=== PATIENT | female | born 1960 | race African-American/Black ===

== ENCOUNTER 2020-06-15 12:15 | Emergency (ER) | payer MEDICAID, OTHER ==
[~2020-06-15] VITALS: Ht 165.1 cm; Wt 73.9 kg
[2020-06-15] MEDS ORDERED: ACETAMINOPHEN ES 500 MG TABLET PO ONE (12:45)
[2020-06-15] MEDS ORDERED: ACETAMINOPHEN ES 500 MG TABLET ONE (12:48)
--- NOTE | 2020-06-15 14:41 | NUR ---
PT WAS EVALUATED BY DR MANZO. PT WAS D/C'd TO HOME. D/C INSTRUCTIONS GIVEN TO THE PT BY DR MANZO.
[2020-06-15 14:42] VITALS: BP 142/75
== END 2020-06-15 14:50 | disposition home or self-care (01) ==
LOC: ER 12:15
DX: M25.562 Pain in left knee (principal); M25.561 Pain in right knee; Z91.81 History of falling
CPT/HCPCS: 73562; A4663; A9150

== ENCOUNTER 2021-01-18 14:20 | Emergency (ER) | payer OTHER ==
[~2021-01-18] VITALS: Ht 165.1 cm; Wt 73.5 kg
--- NOTE | 2021-01-18 14:38 | NUR ---
Dr Mata at bedside for MSE.
--- NOTE | 2021-01-18 14:58 | NUR ---
Pt down to CT, left in stable condition. Will draw labs, collect urine and do covid swab when back.
--- NOTE | 2021-01-18 15:15 | NUR ---
Pt back from CT.
[2021-01-18 15:41] LABS: BASOPHILS % (AUTO) 0.3 % (0.0-2.0); EOSINOPHILS # (AUTO) 0.2 K/uL (0.0-0.7); EOSINOPHILS % (AUTO) 2.8 % (0.0-7.0); HEMATOCRIT 37.2 % (31.2-41.9); HEMOGLOBIN 12.5 g/dL (10.9-14.3); LYMPHOCYTES # (AUTO) 2.7 K/uL (20.0-40.0); MEAN CORPUSCULAR HEMOGLOBIN 29.7 uug (24.7-32.8); MEAN CORPUSCULAR HGB CONC 34 g/dL (32.3-35.6); MEAN CORPUSCULAR VOLUME 88.4 fL (75.5-95.3); MONOCYTES # (AUTO) 0.6 K/uL (2.0-10.0); MONOCYTES % (AUTO) 8.9 % (0.0-11.0); NEUTROPHILS # (AUTO) 3.2 K/uL (1.8-8.9); PLATELET COUNT (AUTO) 252 K/uL (179-408); WHITE BLOOD COUNT (AUTO) 6.7 K/uL (3.8-11.8)
[2021-01-18 15:48] LABS: *BILIRUBIN,URIN NEGATIVE (NEGATIVE); *BLOOD, URINE NEGATIVE (NEGATIVE); *CLARITY,URINE CLEAR (CLEAR); *COLOR,URINE YELLOW (YELLOW); *KETONES,URINE NEGATIVE (NEGATIVE); *UROBILINOGEN,URINE 0.2 E.U./dl (NORMAL); CREATININE 0.8 mg/dL (0.6-1.3); LEUKOCYTE ESTERASE ,URINE NEGATIVE (NEGATIVE); NITRITE, URINE NEGATIVE (NEGATIVE); POTASSIUM 3.6 mmol/L (3.5-5.1); UGLUCOSE NEGATIVE (NEGATIVE)
[2021-01-18 15:54] LABS: BILIRUBIN,DIRECT 0.1 mg/dL (0.0-0.2); BILIRUBIN,TOTAL 0.6 mg/dL (0.2-1.0); TOTAL PROTEIN, SERUM 8.2 g/dL (6.4-8.2)
[2021-01-18] MEDS ORDERED: AZIT250T13 PO (16:49)
[2021-01-18] MEDS ORDERED: PRED50TA PO (16:49)
[2021-01-18] MEDS ORDERED: IBUP-1957 PO (16:49)
[2021-01-18] MEDS ORDERED: BENZ200C53 PO (16:49)
--- NOTE | 2021-01-18 17:10 | NUR ---
Patient has been cleared for DC by ERMD. Written and verbal after care instructions given, along with prescriptions. Patient verbalizes understanding of instructions. Stressed follow up with PCP/specialists or return to ER for worsening s/s. Patient ambulated out of ER in steady gait, and stable condition.
[2021-01-18 18:00] VITALS: BP 135/80
== END 2021-01-18 17:20 | disposition home or self-care (01) ==
LOC: ER 14:20
DX: J45.901 Unspecified asthma with (acute) exacerbation (principal); J20.9 Acute bronchitis, unspecified; Z20.822 Contact with and (suspected) exposure to COVID-19; I45.10 Unspecified right bundle-branch block; M17.11 Unilateral primary osteoarthritis, right knee; M25.461 Effusion, right knee; I70.0 Atherosclerosis of aorta; N28.89 Other specified disorders of kidney and ureter; I11.9 Hypertensive heart disease without heart failure; E78.5 Hyperlipidemia, unspecified
CPT/HCPCS: 36415; 70030-TC; 71045; 83690; 85025; 93005; A4663

== ENCOUNTER 2021-02-19 10:13 | Emergency (ER) | payer MEDICAID, OTHER ==
[~2021-02-19] VITALS: Ht 165.1 cm; Wt 74.8 kg
[~2021-02-19 10:13] MED LIST: AZIT250T13 PO; BENZ200C53 PO; IBUP-1957 PO; PRED50TA PO
[2021-02-19] MEDS ORDERED: ALBUTEROL SULFATE 2.5 MG/3 ML NEBU NEB ONE (10:30)
[2021-02-19] MEDS ORDERED: IPRATROPIUM BROMIDE 0.5 MG/2.5 ML NEBU NEB ONE (10:30)
[2021-02-19] MEDS ORDERED: methylPREDNISolone SOD SUCC 125 MG/2 ML VIAL IV ONE (10:30)
[2021-02-19] MEDS ORDERED: IPRATROPIUM BROMIDE 0.5 MG/2.5 ML NEBU ONE (10:48)
[2021-02-19] MEDS ORDERED: ALBUTEROL SULFATE 2.5 MG/ 0.5 ML NEBU ONE (10:48)
[2021-02-19 11:00] LABS: BASOPHILS % (AUTO) 0.2 % (0.0-2.0); EOSINOPHILS # (AUTO) 0.2 K/uL (0.0-0.7); EOSINOPHILS % (AUTO) 3.2 % (0.0-7.0); HEMATOCRIT 35.4 % (31.2-41.9); HEMOGLOBIN 11.7 g/dL (10.9-14.3); LYMPHOCYTES # (AUTO) 2.4 K/uL (20.0-40.0); LYMPHOCYTES % (AUTO) 40.3 % (20.5-51.5); MEAN CORPUSCULAR HEMOGLOBIN 29.7 uug (24.7-32.8); MEAN CORPUSCULAR HGB CONC 33 g/dL (32.3-35.6); MEAN CORPUSCULAR VOLUME 89.6 fL (75.5-95.3); MONOCYTES # (AUTO) 0.5 K/uL (2.0-10.0); MONOCYTES % (AUTO) 7.6 % (0.0-11.0); NEUTROPHILS # (AUTO) 2.9 K/uL (1.8-8.9); NEUTROPHILS % (AUTO) 48.7 % (38.5-71.5); PLATELET COUNT (AUTO) 246 K/uL (179-408); RED BLOOD CELL COUNT(AUTO) 3.95 MIL/uL (3.63-4.92); WHITE BLOOD COUNT (AUTO) 5.9 K/uL (3.8-11.8)
[2021-02-19] MEDS ORDERED: methylPREDNISolone SOD SUCC 125 MG/2 ML VIAL ONE (11:05)
[2021-02-19 11:17] LABS: BILIRUBIN,DIRECT 0.2 mg/dL (0.0-0.2); BILIRUBIN,TOTAL 0.7 mg/dL (0.2-1.0); POTASSIUM 3.7 mmol/L (3.5-5.1); TOTAL PROTEIN, SERUM 7.9 g/dL (6.4-8.2)
[2021-02-19] MEDS ORDERED: PRED50TA PO (11:32)
[2021-02-19] MEDS ORDERED: MECL-159 PO (11:32)
[2021-02-19] MEDS ORDERED: PROM118S5 PO (11:32)
[2021-02-19] MEDS ORDERED: BENZ-13 PO (11:32)
--- NOTE | 2021-02-19 12:21 | NUR ---
Patient discharged to home in stable condition. Written and verbal after care instructions given. Patient verbalizes understanding of instructions. Stressed follow up or return to ER for worsening s/s.Patient walks with steady gait. Denies dizziness, states they feel better and are not feeling short of breath. Patient states she will follow up with her primary.
[2021-02-19 12:31] VITALS: BP 133/85
== END 2021-02-19 12:10 | disposition home or self-care (01) ==
LOC: ER 10:13
DX: J45.901 Unspecified asthma with (acute) exacerbation (principal); R07.89 Other chest pain; R42 Dizziness and giddiness; I11.9 Hypertensive heart disease without heart failure; I45.10 Unspecified right bundle-branch block; G31.9 Degenerative disease of nervous system, unspecified; E78.5 Hyperlipidemia, unspecified; Z88.6 Allergy status to analgesic agent
CPT/HCPCS: 36415; 70450; 71045; 80048; 80076; 83880; 84484; 85025; 93005; 94640; 96374; 99285; J2930; 70030-TC; A4663; J3590

== ENCOUNTER 2021-07-02 15:12 | Emergency (ER) | payer MEDICAID, OTHER ==
[~2021-07-02] VITALS: Ht 165.1 cm; Wt 78.0 kg
[~2021-07-02 15:12] MED LIST changes: -AZIT250T13 PO; +BENZ-13 PO; +MECL-159 PO; +PROM118S5 PO
[2021-07-02] MEDS ORDERED: FLEXERIL PO (15:54)
[2021-07-02] MEDS ORDERED: ALBU8.5H8 INH (15:54)
[2021-07-02] MEDS ORDERED: AMLO-212 PO (15:54)
[2021-07-02] MEDS ORDERED: FLUT1DIS27 INH (15:54)
[2021-07-02] MEDS ORDERED: ASPIRIN 81 MG TAB.CHEW ONE (16:13)
[2021-07-02] MEDS ORDERED: ASPIRIN 81 MG TAB.CHEW PO ONE (16:15)
[2021-07-02 16:19] LABS: HEMATOCRIT 35.8 % (31.2-41.9); MEAN CORPUSCULAR HEMOGLOBIN 30.3 uug (24.7-32.8); MEAN CORPUSCULAR VOLUME 88.8 fL (75.5-95.3); PLATELET COUNT (AUTO) 243 K/uL (179-408)
[2021-07-02 16:26] LABS: POTASSIUM 3.3 mmol/L (3.5-5.1)
[2021-07-02 16:31] LABS: BILIRUBIN,TOTAL 0.7 mg/dL (0.2-1.0); TOTAL PROTEIN, SERUM 7.9 g/dL (6.4-8.2)
[2021-07-02] MEDS ORDERED: ACETAMINOPHEN 325 MG TABLET PO ONE (16:45)
[2021-07-02] MEDS ORDERED: ACETAMINOPHEN 325 MG TABLET ONE (16:59)
--- NOTE | 2021-07-02 20:00 | NUR ---
YESSY FROM [facility] CALLED WITH THE FOLLOWING DETAILS; PT IS GOING TO [facility] ROOM 918 REPORT NUMBER [phone], ADMITTING MD DR. PANDA WITT [phone]
--- NOTE | 2021-07-02 20:39 | NUR ---
CALLED [facility], SPOKE TO LOPEZ WHO GAVE ETA OF 30MINS.
--- NOTE | 2021-07-02 21:35 | NUR ---
[facility] AT BEDSIDE TO TRANSFER THE PT. CALLED FOR REPORT, NO RESPONSE, WILL CALL AGAIN. TRANSFERED PT IN STABLE CONDITION.
== END 2021-07-02 21:35 | disposition short-term general hospital (02) ==
LOC: ER 15:12
DX: R07.9 Chest pain, unspecified (principal); I45.10 Unspecified right bundle-branch block; Z20.822 Contact with and (suspected) exposure to COVID-19; I10 Essential (primary) hypertension; E78.5 Hyperlipidemia, unspecified; J45.909 Unspecified asthma, uncomplicated; M25.562 Pain in left knee; M25.561 Pain in right knee; M19.90 Unspecified osteoarthritis, unspecified site
CPT/HCPCS: 36415; 70030-TC; 71045; 73560; 85025; A4663

== ENCOUNTER 2022-03-21 09:02 | Emergency (ER) | payer MEDICAID, OTHER ==
[~2022-03-21] VITALS: Ht 165.1 cm; Wt 73.5 kg
[~2022-03-21 09:02] MED LIST changes: +ALBU8.5H8 INH; +AMLO-212 PO; -BENZ-13 PO; -BENZ200C53 PO; +FLEXERIL PO; +FLUT1DIS27 INH; -IBUP-1957 PO; -MECL-159 PO; -PRED50TA PO; -PROM118S5 PO
[2022-03-21] MEDS ORDERED: KETOROLAC TROMETHAMINE 15 MG INJ IM ONE ×2 (11:00→13:00)
[2022-03-21] MEDS ORDERED: KETOROLAC TROMETHAMINE 15 MG INJ ONE ×2 (11:01→13:06)
--- NOTE | 2022-03-21 11:40 | NUR ---
Pt still has a lot of pain, -06/19
[2022-03-21] MEDS ORDERED: NAPR-1009 PO (12:59)
[2022-03-21] MEDS ORDERED: TRAM50TA PO (12:59)
--- NOTE | 2022-03-21 13:23 | NUR ---
Showed pt how to wrap knee w/elastic bandage, she didn't want it wrapped now; gave her a bandage for home. Pt has 9/10 L knee pain, now. Gave pt RX and d/c instructions, pt verbalized understanding.
== END 2022-03-21 13:30 | disposition home or self-care (01) ==
LOC: ER 09:02
DX: M25.562 Pain in left knee (principal); M17.12 Unilateral primary osteoarthritis, left knee; Z87.828 Personal history of other (healed) physical injury and trauma; J45.909 Unspecified asthma, uncomplicated; I10 Essential (primary) hypertension; Z79.899 Other long term (current) drug therapy; Z88.6 Allergy status to analgesic agent
CPT/HCPCS: 73564; 93971; 96372 ×2; 99284; J1885 ×2; A4663

== ENCOUNTER 2022-10-21 16:35 | Emergency (ER) | payer MEDICAID, OTHER ==
[~2022-10-21] VITALS: Ht 165.1 cm; Wt 73.9 kg
[~2022-10-21 16:35] MED LIST changes: +NAPR-1009 PO; +TRAM50TA PO
--- NOTE | 2022-10-21 18:30 | NUR ---
Specimens for Influenza and COVID-19 antigen collected and sent to lab.
[2022-10-21] MEDS ORDERED: BENZ-13 PO (18:41)
--- NOTE | 2022-10-21 19:10 | NUR ---
Patient discharged to home in stable condition. Written and verbal after care instructions given. Patient verbalizes understanding of instructions. Stressed follow up or return to ER for worsening s/s.
== END 2022-10-21 19:11 | disposition home or self-care (01) ==
LOC: ER 16:49
DX: R05.9 Cough, unspecified (principal); Z20.822 Contact with and (suspected) exposure to COVID-19; I11.9 Hypertensive heart disease without heart failure; E78.5 Hyperlipidemia, unspecified; J45.909 Unspecified asthma, uncomplicated; Z79.899 Other long term (current) drug therapy
CPT/HCPCS: 71045; 87400; A4663

== ENCOUNTER 2023-01-27 13:55 | Emergency (ER) | payer MEDICAID, OTHER ==
[~2023-01-27] VITALS: Ht 165.1 cm; Wt 81.6 kg
[~2023-01-27 13:55] MED LIST changes: +BENZ-13 PO
[2023-01-27] MEDS ORDERED: predniSONE 10 MG TABLET PO ONE (14:30)
[2023-01-27] MEDS ORDERED: IPRATROPIUM BROMIDE 0.5 MG/2.5 ML NEBU NEB ONE (14:30)
[2023-01-27] MEDS ORDERED: ALBUTEROL SULFATE 2.5 MG/3 ML NEBU NEB ONE (14:30)
[2023-01-27] MEDS ORDERED: IPRATROPIUM BROMIDE 0.5 MG/2.5 ML NEBU ONE (14:41)
[2023-01-27] MEDS ORDERED: ALBUTEROL SULFATE 2.5 MG/3 ML NEBU ONE (14:41)
[2023-01-27] MEDS ORDERED: predniSONE 10 MG TABLET ONE (14:50)
[2023-01-27] MEDS ORDERED: predniSONE 50 MG TABLET ONE (14:50)
[2023-01-27 15:07] LABS: HEMATOCRIT 35.8 % (31.2-41.9); MEAN CORPUSCULAR HEMOGLOBIN 29.8 uug (24.7-32.8); PLATELET COUNT (AUTO) 247 K/uL (179-408)
[2023-01-27 15:23] LABS: CARBON DIOXIDE 29 mmol/L (21-32); CHLORIDE 107 mmol/L (98-107); CREATININE 0.7 mg/dL (0.6-1.3); GLUCOSE 107 mg/dL (74-106); POTASSIUM 3.6 mmol/L (3.5-5.1); UREA NITROGEN, BLOOD 19 mg/dL (7-18)
[2023-01-27] MEDS ORDERED: FLUT1DIS27 INH (16:35)
[2023-01-27] MEDS ORDERED: PRED20TA PO (16:35)
[2023-01-27] MEDS ORDERED: ALBU8.5H8 INH (16:35)
[2023-01-27] MEDS ORDERED: AZIT250T13 PO (16:35)
[2023-01-27] MEDS ORDERED: ACET-2154 PO (16:35)
[2023-01-27 17:15] VITALS: BP 122/70
== END 2023-01-27 17:16 | disposition home or self-care (01) ==
LOC: ER 13:55
DX: J45.909 Unspecified asthma, uncomplicated (principal); R05.9 Cough, unspecified; I44.7 Left bundle-branch block, unspecified; E78.5 Hyperlipidemia, unspecified; I10 Essential (primary) hypertension; Z86.73 Personal history of transient ischemic attack (TIA), and cerebral infarction without residual deficits; M19.90 Unspecified osteoarthritis, unspecified site; Z79.899 Other long term (current) drug therapy; Z88.6 Allergy status to analgesic agent; R29.818 Other symptoms and signs involving the nervous system
CPT/HCPCS: 99285; 70450; 71045; 87804 ×2; 80048; 83880; 85025; 84484; 36415; 93005; 94640; J7512 ×2; A4663; J3590

== ENCOUNTER 2023-04-21 12:56 | Inpatient (IN) | payer OTHER ==
[~2023-04-21] VITALS: Ht 165.1 cm; Wt 87.1 kg
[~2023-04-21 12:56] MED LIST changes: +ACET-2154 PO; +AZIT250T13 PO; +PRED20TA PO
--- NOTE | 2023-04-21 13:12 | NUR ---
Patient to room #4B, awaiting MD exam, informed of plan of care at this time. Urine has been provided and sent to lab. No s/s of any distress noted at this time. Gown provided, will continue to monitor.
--- NOTE | 2023-04-21 13:24 | NUR ---
at bedside for exam.
[2023-04-21 13:31] LABS: *BILIRUBIN,URIN NEGATIVE (NEGATIVE); *BLOOD, URINE NEGATIVE (NEGATIVE); *CLARITY,URINE CLEAR (CLEAR); *COLOR,URINE YELLOW (YELLOW); *KETONES,URINE NEGATIVE (NEGATIVE); *UROBILINOGEN,URINE 0.2 E.U./dl (NORMAL); LEUKOCYTE ESTERASE ,URINE NEGATIVE (NEGATIVE); NITRITE, URINE NEGATIVE (NEGATIVE); UGLUCOSE NEGATIVE (NEGATIVE)
--- NOTE | 2023-04-21 13:52 | NUR ---
BEDSIDE EKG DONE FOR MD REVIEW, UNABLE TO START IV AT THIS TIME. PATIENT OFF UNIT TO CT.
--- NOTE | 2023-04-21 14:16 | NUR ---
#20G ESTABLISHED IN RIGHT AC, BLOOD COLLECTED AND SENT TO LAB.
[2023-04-21 14:19] LABS: HEMATOCRIT 34.8 % (31.2-41.9); MEAN CORPUSCULAR HEMOGLOBIN 30.3 uug (24.7-32.8); PLATELET COUNT (AUTO) 211 K/uL (179-408)
[2023-04-21] MEDS ORDERED: ASPIRIN 81 MG TAB.CHEW PO ONE (14:30)
[2023-04-21 14:32] LABS: CARBON DIOXIDE 29 mmol/L (21-32); CHLORIDE 106 mmol/L (98-107); CREATININE 0.8 mg/dL (0.6-1.3); GLUCOSE 103 mg/dL (74-106); POTASSIUM 3.2 mmol/L (3.5-5.1); UREA NITROGEN, BLOOD 13 mg/dL (7-18)
[2023-04-21] MEDS ORDERED: ASPIRIN 325 MG TABLET ONE (14:43)
[2023-04-21] MEDS ORDERED: ASPIRIN 81 MG TAB.CHEW ONE (14:44)
--- NOTE | 2023-04-21 15:15 | NUR ---
MD at bedside talking to patient and family.
--- NOTE | 2023-04-21 15:28 | NUR ---
Called for room assignment, informed that no charge nurse today, will call me back.
--- NOTE | 2023-04-21 16:16 | NUR ---
Patient resting in bed, no voiced c/o pain or discomfort at this time, still awaiting room assignment, will continue to monitor.
--- NOTE | 2023-04-21 16:27 | NUR ---
Up to bathroom and back to bed, waiting on meal trays to be delivered, has been requesting something to eat, ER informed her it was ok.
--- NOTE | 2023-04-21 17:41 | NUR ---
PATIENT RESTING IN BED, SANDWHICH GIVEN AT THIS TIME. PATIENT CONTINUES TO AWAIT ROOM ASSIGNMENT. NO CHANGE IN PRIMARY ASSESSMENT.
--- NOTE | 2023-04-21 18:03 | NUR ---
Hot meal tray given, no changes noted in primary assessment.
--- NOTE | 2023-04-21 18:53 | NUR ---
Bolivar malone in [facility] - 04/21/23 at 1854 by BRENNAN Informed patient she will go to room #321
--- NOTE | 2023-04-21 18:54 | NUR ---
Informed patient she will go room #310, remains stable for transport.
--- NOTE | 2023-04-21 19:15 | NUR ---
Recieved report from Betsey BRIGHT.
[2023-04-21] MEDS ORDERED: ONDANSETRON 4 MG/2 ML VIAL IV PRN (20:15)
[2023-04-21] MEDS ORDERED: ALBUTEROL SULFATE 8 GM HFA.AER.AD INH PRN (20:15)
[2023-04-21] MEDS ORDERED: hydrALAZINE HCL 25 MG TABLET PO PRN (20:15)
[2023-04-21] MEDS ORDERED: HYDROCODONE/APAP 5-325MG TABLET PO PRN (20:15)
[2023-04-21] MEDS ORDERED: ALBUTEROL SULFATE 2.5 MG/3 ML NEBU NEB PRN (20:30)
[2023-04-21] MEDS ORDERED: DOCUSATE SODIUM 100 MG CAPSULE PO SCH (21:00)
[2023-04-21] MEDS ORDERED: BLOOD SUGAR DIAGNOSTIC 1 EACH STRIP VI SCH (21:00)
--- NOTE | 2023-04-21 21:06 | NUR ---
Third floor called and gave report to Gladys BRIGHT.
--- NOTE | 2023-04-21 21:25 | NUR ---
Transferred patient up to third floor with belongings, DEANGELO Grahma made aware of patient's arrival.
[2023-04-21 21:30] VITALS: BP 140/89; TEMP 98.8; O2SAT 97
--- NOTE | 2023-04-21 21:30 | NUR ---
Admitted a 62 years old female with Dx of right sided numbness. Patient AAOx4. In no apparent distress. Complain of headache, offered Tylenol but refused. NSR with BBB on tele, HR of 82/min. IV site on right AC intact and patent. NIHHS done, only noted with drift on right leg after 5 seconds. No slurred speech, no facial droop noted. Routine admission care done. Plan of care initiated. Safety measure initiated and call light within reached.
[2023-04-21] MEDS: AMLODIPINE 5 MG TABLET PO SCH (21:51)
[2023-04-22] VITALS: BP 138/81; TEMP 97.8; O2SAT 93
[2023-04-22] MEDS ORDERED: BLOOD SUGAR DIAGNOSTIC 1 EACH STRIP VI SCH
[2023-04-22] MEDS: ACETAMINOPHEN 325 MG TABLET PO PRN ×2 (00:12→06:16)
[2023-04-22 04:00] VITALS: BP 113/76; TEMP 97.8; O2SAT 95
--- NOTE | 2023-04-22 06:35 | NUR ---
Tylenol 650mg PO given for complain of headache and effective. NSR on tele with BBB, HR of 75/min. Denies any chest pain or SOB. Needs attended to and met. Safety measure maintained and call light within reached.
[2023-04-22 06:45] LABS: HEMATOCRIT 34.8 % (31.2-41.9); MEAN CORPUSCULAR HEMOGLOBIN 30.4 uug (24.7-32.8); MEAN CORPUSCULAR VOLUME 90.2 fL (75.5-95.3); PLATELET COUNT (AUTO) 217 K/uL (179-408)
[2023-04-22] MEDS ORDERED: PANTOPRAZOLE SODIUM 40 MG TABLET.DR PO SCH (07:00)
[2023-04-22 07:29] LABS: BILIRUBIN,TOTAL 0.7 mg/dL (0.2-1.0); CREATININE 0.8 mg/dL (0.6-1.3); MAGNESIUM 2.1 mg/dL (1.8-2.4); PHOSPHOROUS 3.6 mg/dL (2.5-4.9); TOTAL PROTEIN, SERUM 7.6 g/dL (6.4-8.2)
[2023-04-22 07:54] LABS: THYROID STIMULATING HORMONE 1.252 mIU/mL (0.358-3.740)
[2023-04-22] MEDS ORDERED: ASPIRIN EC 81 MG TABLET.DR PO SCH (09:00)
[2023-04-22] MEDS ORDERED: FLUTICASONE/VILANTEROL 1 EACH BLST.W.DEV INH SCH (09:00)
[2023-04-22] MEDS ORDERED: FLUTICASONE/SALMETEROL 100/50 1 INH DISK.W.DEV INH SCH (09:00)
[2023-04-22 09:06] VITALS: BP 119/74; TEMP 98; O2SAT 96
[2023-04-22] MEDS: AMLODIPINE 5 MG TABLET PO SCH (09:22)
--- NOTE | 2023-04-22 09:32 | NUR ---
mri brain w/ contrast pending. pending auth per cm. Addendum: 04/22/23 at 1141 by SERAFIN KHALIL RN mri was cancelled per CM. pt will be transfer to [facility].
[2023-04-22] MEDS ORDERED: KETOROLAC TROMETHAMINE 15 MG INJ IVP PRN (10:15)
[2023-04-22 11:50] VITALS: BP 132/78; TEMP 98.3; O2SAT 98
[2023-04-22] MEDS ORDERED: BRIM5DRO2 OP (14:18)
[2023-04-22] MEDS ORDERED: CYCL10TA9 PO (14:18)
[2023-04-22] MEDS ORDERED: ASPI81TA31 PO (14:18)
[2023-04-22 16:00] VITALS: BP 129/77; TEMP 98.1; O2SAT 96
[2023-04-22] MEDS ORDERED: PANT40TA49 PO (16:23)
[2023-04-22] MEDS ORDERED: ASPI-618 PO (16:23)
[2023-04-22] MEDS ORDERED: KETO15VI5 IVP (16:23)
[2023-04-22] MEDS ORDERED: BRIMONIDINE 0.2% OPHT DROP 10 ML BOTTLE EACHEYE SCH (17:00)
[2023-04-22] MEDS ORDERED: TIMOLOL MALEATE 0.5% OPHT DROP 5 ML BOTTLE EACHEYE SCH (17:00)
--- NOTE | 2023-04-22 17:05 | NUR ---
pt will be transfer to [facility]. report given to Jessica BRIGHT. pt will be pick by [facility] transportation at 1800 per pt request.
--- NOTE | 2023-04-22 18:42 | NUR ---
pt is discharge from the facility. pt alert and oriented. ambulatory. in no acute distress. exit care provided. iv acces intact and left in placed per request of receiving rn from [facility]. all belonging accounted for. pt was transferred to [facility] for per insurance request.
== END 2023-04-22 18:40 | disposition short-term general hospital (02) | DRG 45 ==
LOC: ER 12:56 → TRANSITION 18:33 → TELE3 21:09
PROVIDERS: ADMIT Internal Medicine; ATTEND Internal Medicine
DX: I63.9 Cerebral infarction, unspecified (principal); I11.9 Hypertensive heart disease without heart failure; E66.9 Obesity, unspecified; R20.2 Paresthesia of skin; R29.702 NIHSS score 2; Z68.27 Body mass index [BMI] 27.0-27.9, adult; H40.9 Unspecified glaucoma; E78.5 Hyperlipidemia, unspecified; J45.909 Unspecified asthma, uncomplicated; Z79.899 Other long term (current) drug therapy; M19.90 Unspecified osteoarthritis, unspecified site; I45.10 Unspecified right bundle-branch block; Z86.73 Personal history of transient ischemic attack (TIA), and cerebral infarction without residual deficits; I34.0 Nonrheumatic mitral (valve) insufficiency; M17.0 Bilateral primary osteoarthritis of knee; M19.032 Primary osteoarthritis, left wrist; M19.031 Primary osteoarthritis, right wrist
CPT/HCPCS: 36415; 70450; 71045; 83735; 84100; 84443; 84484; 85025; 85730; 93005; 93307; 93880; A4663; G0378; J1885

== ENCOUNTER 2023-07-25 15:53 | Emergency (ER) | payer BC, OTHER ==
[~2023-07-25] VITALS: Ht 167.6 cm; Wt 78.0 kg
[~2023-07-25 15:53] MED LIST changes: -ACET-2154 PO; +ASPI-618 PO; -AZIT250T13 PO; -BENZ-13 PO; +BRIM5DRO2 OP; +CYCL10TA9 PO; -FLEXERIL PO; +KETO15VI5 IVP; -NAPR-1009 PO; +PANT40TA49 PO; -PRED20TA PO; -TRAM50TA PO
[2023-07-25] MEDS ORDERED: BENZONATATE 100 MG CAPSULE PO ONE (16:15)
[2023-07-25] MEDS ORDERED: BENZONATATE 100 MG CAPSULE ONE (16:24)
[2023-07-25 16:31] LABS: BASOPHILS % (AUTO) 0.1 % (0.0-2.0); EOSINOPHILS # (AUTO) 0.2 K/uL (0.0-0.7); HEMATOCRIT 33.1 % (31.2-41.9); HEMOGLOBIN 11.2 g/dL (10.9-14.3); LYMPHOCYTES % (AUTO) 18.2 % (20.5-51.5); MEAN CORPUSCULAR HEMOGLOBIN 30.1 uug (24.7-32.8); MEAN CORPUSCULAR HGB CONC 34 g/dL (32.3-35.6); MEAN CORPUSCULAR VOLUME 89.2 fL (75.5-95.3); MONOCYTES # (AUTO) 0.5 K/uL (0.1-1.30); MONOCYTES % (AUTO) 9.5 % (0.0-11.0); NEUTROPHILS # (AUTO) 3.9 K/uL (1.8-8.9); NEUTROPHILS % (AUTO) 69.2 % (38.5-71.5); PLATELET COUNT (AUTO) 203 K/uL (179-408); RED BLOOD CELL COUNT(AUTO) 3.71 MIL/uL (3.63-4.92); RED CELL DISTRIBUTION WIDTH 14.9 % (12.3-17.7); WHITE BLOOD COUNT (AUTO) 5.7 K/uL (3.8-11.8)
[2023-07-25 16:34] LABS: DIFFERENTIAL COMMENT 1
[2023-07-25 16:40] LABS: CALCIUM 8.6 mg/dL (8.5-10.1); CREATININE 0.8 mg/dL (0.6-1.3); POTASSIUM 3.3 mmol/L (3.5-5.1)
[2023-07-25 16:52] LABS: ALBUMIN 3.6 g/dL (3.4-5.0); BILIRUBIN,TOTAL 0.9 mg/dL (0.2-1.0); TOTAL PROTEIN, SERUM 7.4 g/dL (6.4-8.2)
[2023-07-25] MEDS ORDERED: BENZ-13 PO (17:46)
[2023-07-25] MEDS ORDERED: PRED20TA PO (17:46)
[2023-07-25 18:00] VITALS: BP 138/78; O2SAT 96
== END 2023-07-25 18:05 | disposition home or self-care (01) ==
LOC: ER 15:53
DX: U07.1 COVID-19 (principal); J45.909 Unspecified asthma, uncomplicated; I10 Essential (primary) hypertension; E78.5 Hyperlipidemia, unspecified; Z88.8 Allergy status to other drugs, medicaments and biological substances; Z79.82 Long term (current) use of aspirin; Z79.899 Other long term (current) drug therapy
CPT/HCPCS: 36415; 71045; 84484; 85025; 93005; A4663

== ENCOUNTER 2023-10-29 11:55 | Emergency (ER) | payer BC, OTHER ==
[~2023-10-29] VITALS: Ht 167.6 cm; Wt 77.1 kg
[~2023-10-29 11:55] MED LIST changes: +BENZ-13 PO; +PRED20TA PO
[2023-10-29] MEDS ORDERED: ACET-2605 PO (14:01)
[2023-10-29] MEDS ORDERED: AZIT500T PO (14:01)
[2023-10-29] MEDS ORDERED: PROM118S5 PO (14:01)
[2023-10-29] MEDS ORDERED: PRED50TA PO (14:01)
[2023-10-29 14:07] VITALS: BP 133/78; O2SAT 97
== END 2023-10-29 14:07 | disposition home or self-care (01) ==
LOC: ER 11:55
DX: R04.2 Hemoptysis (principal); R07.89 Other chest pain; I10 Essential (primary) hypertension; E78.5 Hyperlipidemia, unspecified; J45.909 Unspecified asthma, uncomplicated; Z88.8 Allergy status to other drugs, medicaments and biological substances; Z79.82 Long term (current) use of aspirin; Z79.899 Other long term (current) drug therapy
CPT/HCPCS: 71045; A4606; A4663

== ENCOUNTER 2024-08-08 16:52 | Inpatient (IN) | payer OTHER ==
[~2024-08-08] VITALS: Ht 157.5 cm; Wt 75.7 kg
[~2024-08-08 16:52] MED LIST changes: +ACET-2605 PO; +AZIT500T PO; +PRED50TA PO; +PROM118S5 PO
[2024-08-08] MEDS ORDERED: ALBU8.5H8 PO (17:24)
[2024-08-08] MEDS ORDERED: ASPI81TA31 PO (17:24)
[2024-08-08] MEDS ORDERED: ALBUTEROL SULFATE 2.5 MG/3 ML NEBU ONE ×2 (17:51→21:59)
[2024-08-08] MEDS ORDERED: IPRATROPIUM BROMIDE 0.5 MG/2.5 ML NEBU ONE ×2 (17:51→21:59)
[2024-08-08] MEDS ORDERED: ASPIRIN 81 MG TAB.CHEW ONE (17:51)
[2024-08-08 18:00] VITALS: O2SAT 98
[2024-08-08 18:16] LABS: BASOPHILS % (AUTO) 0.2 % (0.0-2.0); EOSINOPHILS # (AUTO) 0.2 K/uL (0.0-0.7); EOSINOPHILS % (AUTO) 3.7 % (0.0-7.0); HEMATOCRIT 34.7 % (31.2-41.9); HEMOGLOBIN 11.7 g/dL (10.9-14.3); LYMPHOCYTES # (AUTO) 2.7 K/uL (0.8-4.8); MEAN CORPUSCULAR HEMOGLOBIN 30.4 uug (24.7-32.8); MEAN CORPUSCULAR HGB CONC 34 g/dL (32.3-35.6); MEAN CORPUSCULAR VOLUME 90.3 fL (75.5-95.3); MONOCYTES # (AUTO) 0.5 K/uL (0.1-1.30); MONOCYTES % (AUTO) 8.4 % (0.0-11.0); NEUTROPHILS # (AUTO) 2.7 K/uL (1.8-8.9); NEUTROPHILS % (AUTO) 43.7 % (38.5-71.5); PLATELET COUNT (AUTO) 234 K/uL (179-408); RED BLOOD CELL COUNT(AUTO) 3.84 MIL/uL (3.63-4.92); RED CELL DISTRIBUTION WIDTH 14.9 % (12.3-17.7); WHITE BLOOD COUNT (AUTO) 6.2 K/uL (3.8-11.8)
[2024-08-08 18:16] LABS: CALCIUM 9.1 mg/dL (8.5-10.1); CARBON DIOXIDE 27 mmol/L (21-32); CHLORIDE 106 mmol/L (98-107); CREATININE 0.8 mg/dL (0.6-1.3); GLUCOSE 102 mg/dL (74-106); POTASSIUM 3.8 mmol/L (3.5-5.1); SODIUM SERUM 142 mmol/L (136-145); UREA NITROGEN, BLOOD 18 mg/dL (7-18)
[2024-08-08] MEDS: ASPIRIN 81 MG TAB.CHEW PO ONE (18:16)
[2024-08-08] MEDS: IPRATROPIUM BROMIDE 0.5 MG/2.5 ML NEBU NEB ONE ×2 (18:19→22:06)
[2024-08-08] MEDS: ALBUTEROL SULFATE 2.5 MG/3 ML NEBU NEB ONE ×2 (18:19→22:06)
[2024-08-08 18:22] VITALS: O2SAT 100
[2024-08-08 18:31] LABS: NT-PRO BNP 162 pg/mL (0-125)
[2024-08-08] MEDS ORDERED: ENOXAPARIN SODIUM 80 MG/0.8 ML DISP.SYRIN SQ ONE (18:43)
[2024-08-08] MEDS ORDERED: NITROGLYCERIN OINT 1 GM PACKET TP ONE (18:43)
[2024-08-08] MEDS: NITROGLYCERIN OINT 1 GM PACKET TP ONE (18:52)
[2024-08-08] MEDS: ENOXAPARIN SODIUM 80 MG/0.8 ML DISP.SYRIN SQ ONE (18:54)
[2024-08-08 19:12] LABS: *BILIRUBIN,URIN NEGATIVE (NEGATIVE); *BLOOD, URINE NEGATIVE (NEGATIVE); *CLARITY,URINE CLEAR (CLEAR); *COLOR,URINE YELLOW (YELLOW); *KETONES,URINE NEGATIVE (NEGATIVE); *PROTEIN,URINE NEGATIVE (NEGATIVE); *UROBILINOGEN,URINE 0.2 E.U./dl (NORMAL); LEUKOCYTE ESTERASE ,URINE NEGATIVE (NEGATIVE); NITRITE, URINE NEGATIVE (NEGATIVE); UGLUCOSE NEGATIVE (NEGATIVE)
[2024-08-08] MEDS ORDERED: GUAIFENESIN/DEXTROMETHORPHAN 5 ML UDC ONE (21:55)
[2024-08-08] MEDS: GUAIFENESIN/DEXTROMETHORPHAN 5 ML UDC PO ONE (22:00)
[2024-08-08 22:10] VITALS: BP 131/81; TEMP 97.7; O2SAT 95; O2SAT 98
[2024-08-08 22:25] VITALS: O2SAT 99
[2024-08-09] VITALS: BP 117/58; TEMP 97.4; O2SAT 96
[2024-08-09] MEDS: ACETAMINOPHEN 325 MG TABLET PO PRN (01:31)
[2024-08-09] MEDS: GUAIFENESIN LA 600 MG TABLET.SA PO SCH (01:32)
[2024-08-09] MEDS ORDERED: AZITHROMYCIN 500MG/ D5W 250ML IVPB **ER PYXIS ONLY IV ONE (01:49)
[2024-08-09] MEDS: AZITHROMYCIN IV 500 MG in IV DEXTROSE 5% 250 ML IV ONE (03:09)
[2024-08-09] MEDS: KETOROLAC TROMETHAMINE 30 MG INJ IVP ONE (04:19)
[2024-08-09] MEDS: ONDANSETRON 4 MG/2 ML VIAL IV PRN (04:19)
[2024-08-09 04:55] VITALS: BP 107/69; TEMP 97.8; O2SAT 96
[2024-08-09] MEDS ORDERED: CYCLOBENZAPRINE HCL 10 MG TABLET PO PRN (08:45)
[2024-08-09] MEDS ORDERED: TIMOLOL OP SCH (09:00)
[2024-08-09] MEDS ORDERED: BRIMONIDINE TARTRATE OP SCH (09:00)
[2024-08-09] MEDS ORDERED: [UNRECOGNIZED DRUG - OTHER] OP SCH (09:00)
[2024-08-09] MEDS ORDERED: ALPR0.5T8 PO (09:35)
[2024-08-09] MEDS ORDERED: HYDR28OI2 TP (09:35)
[2024-08-09] MEDS ORDERED: LATA7.5D EACHEYE (09:36)
[2024-08-09] MEDS ORDERED: ALPRAZOLAM 0.5 MG TABLET PO PRN (09:45)
[2024-08-09] MEDS: ASPIRIN 81 MG TAB.CHEW PO SCH (11:22)
[2024-08-09] MEDS: BRIMONIDINE 0.2% OPHT DROP 10 ML BOTTLE OP SCH (11:23)
[2024-08-09] MEDS: HYDROCORTISONE 1% OINT 28.35 GM TUBE TP SCH ×2 (11:23)
[2024-08-09] MEDS: TIMOLOL MALEATE 0.5% OPHT DROP 5 ML BOTTLE OP SCH (11:24)
[2024-08-09] MEDS: methylPREDNISolone SOD SUCC 40 MG/ML VIAL IV ONE (11:34)
[2024-08-09 11:35] LABS: THYROID STIMULATING HORMONE 0.781 mIU/mL (0.358-3.740)
[2024-08-09 11:42] LABS: MAGNESIUM 2.4 mg/dL (1.8-2.4)
[2024-08-09 16:08] VITALS: BP 127/61; TEMP 98.5; O2SAT 93
[2024-08-09] MEDS ORDERED: AZIT250T13 PO (16:33)
[2024-08-09] MEDS ORDERED: METH4TAB3 PO (16:33)
[2024-08-09] MEDS ORDERED: BENZ-13 PO (16:33)
[2024-08-09] MEDS ORDERED: LATANOPROST OPHT DROP 2.5 ML BOTTLE EACHEYE SCH (21:00)
[2024-08-10] MEDS ORDERED: AZITHROMYCIN IV 500 MG in IV DEXTROSE 5% 250 ML IV SCH (21:00)
== END 2024-08-09 17:00 | disposition home or self-care (01) | DRG 206 ==
LOC: ER 17:19 → TELE3 22:14 → MEDSURG3 08-09 00:50
PROVIDERS: ADMIT Nurse Practitioner Acute Care; ATTEND Nurse Practitioner Acute Care
DX: M94.0 Chondrocostal junction syndrome [Tietze] (principal); J45.901 Unspecified asthma with (acute) exacerbation; M79.7 Fibromyalgia; I11.9 Hypertensive heart disease without heart failure; E78.5 Hyperlipidemia, unspecified; Z86.16 Personal history of COVID-19; Z86.73 Personal history of transient ischemic attack (TIA), and cerebral infarction without residual deficits; R79.1 Abnormal coagulation profile; Z79.899 Other long term (current) drug therapy; Z79.82 Long term (current) use of aspirin; Z79.51 Long term (current) use of inhaled steroids
CPT/HCPCS: 36415; 71045; 83735; 84443; 84484; 85025; 94760; A4606; A4663; G0378; J0456; J1650; J1885; J2405; J2919; J3590; J7050

== ENCOUNTER 2025-02-08 15:56 | Emergency (ER) | payer OTHER ==
[~2025-02-08] VITALS: Ht 165.1 cm; Wt 78.0 kg
[~2025-02-08 15:56] MED LIST changes: +ALPR0.5T8 PO; -ASPI-618 PO; +ASPI81TA31 PO; +AZIT250T13 PO; -AZIT500T PO; -FLUT1DIS27 INH; +HYDR28OI2 TP; -KETO15VI5 IVP; +LATA7.5D EACHEYE; +METH4TAB3 PO; -PANT40TA49 PO; -PRED20TA PO; -PRED50TA PO; -PROM118S5 PO
[2025-02-08] MEDS ORDERED: ALBUTEROL SULFATE 2.5 MG/3 ML NEBU ONE (18:59)
[2025-02-08 19:00] VITALS: O2SAT 96
[2025-02-08] MEDS ORDERED: IPRATROPIUM BROMIDE 0.5 MG/2.5 ML NEBU ONE (19:00)
[2025-02-08 19:12] VITALS: O2SAT 97
[2025-02-08 19:15] VITALS: O2SAT 98
[2025-02-08] MEDS: IPRATROPIUM BROMIDE 0.5 MG/2.5 ML NEBU NEB ONE (19:16)
[2025-02-08] MEDS: ALBUTEROL SULFATE 2.5 MG/3 ML NEBU NEB ONE (19:16)
[2025-02-08] MEDS ORDERED: BENZ-13 PO (19:51)
[2025-02-08] MEDS ORDERED: BENZONATATE 100 MG CAPSULE ONE (19:51)
[2025-02-08] MEDS ORDERED: PRED50TA PO (19:51)
[2025-02-08] MEDS ORDERED: predniSONE 50 MG TABLET ONE (19:51)
[2025-02-08] MEDS: BENZONATATE 100 MG CAPSULE PO ONE (19:52)
[2025-02-08] MEDS: predniSONE 50 MG TABLET PO ONE (19:52)
[2025-02-08 20:32] VITALS: BP 144/86; O2SAT 99
== END 2025-02-08 20:32 | disposition home or self-care (01) ==
LOC: ER 16:36
DX: J45.901 Unspecified asthma with (acute) exacerbation (principal); R05.9 Cough, unspecified; E78.5 Hyperlipidemia, unspecified; M19.90 Unspecified osteoarthritis, unspecified site; M79.7 Fibromyalgia; Z79.52 Long term (current) use of systemic steroids; Z79.82 Long term (current) use of aspirin; Z86.16 Personal history of COVID-19; Z88.5 Allergy status to narcotic agent
CPT/HCPCS: 99283; 71045; 94640; J7512; A4606; A4663; J3590

== ENCOUNTER 2025-05-03 09:51 | Emergency (ER) | payer OTHER ==
[~2025-05-03] VITALS: Ht 157.5 cm; Wt 79.8 kg
[~2025-05-03 09:51] MED LIST changes: +PRED50TA PO
[2025-05-03] MEDS ORDERED: ALBUTEROL SULFATE 2.5 MG/3 ML NEBU ONE ×2 (10:34→10:35)
[2025-05-03] MEDS ORDERED: IPRATROPIUM BROMIDE 0.5 MG/2.5 ML NEBU ONE (10:35)
[2025-05-03 10:38] LABS: BASOPHILS % (AUTO) 0.3 % (0.0-2.0); EOSINOPHILS # (AUTO) 0.1 K/uL (0.0-0.7); EOSINOPHILS % (AUTO) 1.7 % (0.0-7.0); HEMATOCRIT 35.5 % (31.2-41.9); HEMOGLOBIN 11.9 g/dL (10.9-14.3); LYMPHOCYTES # (AUTO) 1.9 K/uL (0.8-4.8); LYMPHOCYTES % (AUTO) 37.8 % (20.5-51.5); MEAN CORPUSCULAR HEMOGLOBIN 30.6 uug (24.7-32.8); MEAN CORPUSCULAR HGB CONC 34 g/dL (32.3-35.6); MEAN CORPUSCULAR VOLUME 91.3 fL (75.5-95.3); MONOCYTES # (AUTO) 0.4 K/uL (0.1-1.30); MONOCYTES % (AUTO) 8.2 % (0.0-11.0); NEUTROPHILS # (AUTO) 2.6 K/uL (1.8-8.9); PLATELET COUNT (AUTO) 231 K/uL (179-408); RED BLOOD CELL COUNT(AUTO) 3.89 MIL/uL (3.63-4.92); RED CELL DISTRIBUTION WIDTH 14.9 % (12.3-17.7); WHITE BLOOD COUNT (AUTO) 5.1 K/uL (3.8-11.8)
[2025-05-03 10:40] VITALS: O2SAT 98
[2025-05-03 10:45] LABS: CALCIUM 9.2 mg/dL (8.5-10.1); CARBON DIOXIDE 29 mmol/L (21-32); CHLORIDE 107 mmol/L (98-107); CREATININE 0.9 mg/dL (0.6-1.3); DIFFERENTIAL COMMENT 1; GLUCOSE 105 mg/dL (74-106); POTASSIUM 3.9 mmol/L (3.5-5.1); SODIUM SERUM 144 mmol/L (136-145); UREA NITROGEN, BLOOD 14 mg/dL (7-18)
[2025-05-03 10:47] LABS: *BILIRUBIN,URIN NEGATIVE (NEGATIVE); *BLOOD, URINE NEGATIVE (NEGATIVE); *CLARITY,URINE CLEAR (CLEAR); *COLOR,URINE YELLOW (YELLOW); *KETONES,URINE NEGATIVE (NEGATIVE); *PROTEIN,URINE NEGATIVE (NEGATIVE); *UROBILINOGEN,URINE 0.2 E.U./dl (NORMAL); LEUKOCYTE ESTERASE ,URINE NEGATIVE (NEGATIVE); NITRITE, URINE NEGATIVE (NEGATIVE); UGLUCOSE NEGATIVE (NEGATIVE)
[2025-05-03] MEDS: IPRATROPIUM BROMIDE 0.5 MG/2.5 ML NEBU NEB ONE (10:48)
[2025-05-03] MEDS: ALBUTEROL SULFATE 2.5 MG/3 ML NEBU NEB ONE (10:48)
[2025-05-03 10:51] LABS: ALANINE AMINOTRANSFERASE 21 U/L (14-59); ALBUMIN 3.5 g/dL (3.4-5.0); ALKALINE PHOSPHATASE 146 U/L (50-136); ASPARTATE AMINOTRANSFERASE 14 U/L (15-37); BILIRUBIN,DIRECT 0.2 mg/dL (0.0-0.2); BILIRUBIN,TOTAL 1.1 mg/dL (0.2-1.0); TOTAL PROTEIN, SERUM 7.6 g/dL (6.4-8.2)
[2025-05-03 10:52] VITALS: O2SAT 99
[2025-05-03] MEDS ORDERED: BENZ-13 PO (12:02)
[2025-05-03] MEDS ORDERED: PRED20TA PO (12:02)
[2025-05-03] MEDS ORDERED: ALBU18HF2 INH (12:02)
[2025-05-03 12:24] VITALS: BP 128/81; TEMP 98.3; O2SAT 99
== END 2025-05-03 12:24 | disposition home or self-care (01) ==
LOC: ER 09:51
DX: J40 Bronchitis, not specified as acute or chronic (principal); M17.0 Bilateral primary osteoarthritis of knee; R11.2 Nausea with vomiting, unspecified; R39.15 Urgency of urination; N39.3 Stress incontinence (female) (male); E78.5 Hyperlipidemia, unspecified; I10 Essential (primary) hypertension; J44.89 Other specified chronic obstructive pulmonary disease; M19.90 Unspecified osteoarthritis, unspecified site; K59.00 Constipation, unspecified; M79.7 Fibromyalgia; Z79.52 Long term (current) use of systemic steroids; Z79.82 Long term (current) use of aspirin; Z86.16 Personal history of COVID-19; Z86.73 Personal history of transient ischemic attack (TIA), and cerebral infarction without residual deficits; Z88.5 Allergy status to narcotic agent
CPT/HCPCS: 36415; 71045; 84484; 85025; A4606; A4663; J3590